=== PATIENT | female | born 1995 | race Caucasian/White ===

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

== ENCOUNTER 2018-03-07 13:59 | Emergency (ER) | payer OTHER ==
[~2018-03-07] VITALS: Ht 149.9 cm; Wt 51.8 kg
[2018-03-07 14:07] VITALS: Ht 149.9 cm; Wt 51.8 kg
[2018-03-07 15:19] LABS: CALCIUM 9.1 mg/dL (8.5-10.1); CARBON DIOXIDE 25.7 mmol/L (21-32); CHLORIDE SERUM 102 mmol/L (98-107); CREATININE SERUM 0.7 mg/dL (0.6-1.0); GFR1 > 60 mL/min; GLUCOSE SERUM 78 mg/dL (74-106); POTASSIUM SERUM 3.7 mmol/L (3.5-5.1); SODIUM SERUM 136 mmol/L (136-145)
[2018-03-07 15:23] LABS: ALBUMIN 4.4 g/dL (3.4-5.0); ALKALINE PHOSPHATASE 169 U/L (46-116); ALT/SGPT 23 U/L (14-59); AMYLASE 47 U/L (25-115); AST/SGOT 25 U/L (15-37); BILIRUBIN TOTAL 0.2 mg/dL (0.20-1.00); LIPASE 106 IU/L (73-393)
[2018-03-07 15:26] LABS: BASOPHIL % 0.3 % (0-2); PLATELET COUNT 337 x10^3mcL (130-400)
[2018-03-07 15:27] LABS: microscopic required? YES; urine erythrocyte 3+ (NEGATIVE)
[2018-03-07 15:35] LABS: AMPHETAMINE QUAL UR NONE DETECTED (See below)
[2018-03-07 16:27] VITALS: BP 133/68
== END 2018-03-07 16:27 | disposition home or self-care (01) ==
LOC: ED 13:59
PROVIDERS: Emergency Medicine
DX: O99.43 Diseases of the circulatory system complicating the puerperium (principal); I45.19 Other right bundle-branch block; R07.89 Other chest pain
CPT/HCPCS: 36415; 85378